=== PATIENT | female | born 1930 | race Caucasian/White ===

== ENCOUNTER 2019-09-17 07:30 | Inpatient (IN) | payer MEDICARE, OTHER ==
[2019-09-24] MEDS ORDERED: Lidocaine 1%/Sod Bicarbonate in NS 8.4% 1 ML Syringe IDERM PRN (00:01)
[2019-09-24] MEDS ORDERED: Sodium Chloride 0.9% 10 ML Syringe FLUSH PRN (00:01)
[2019-09-24] MEDS ORDERED: Lactated Ringers 1,000 ML IV SCH (00:01)
[2019-09-24] MEDS ORDERED: Ropivacaine 0.5% 5 MG/ML 30 ML SDV ONE (03:30)
[2019-09-24] MEDS ORDERED: EPINEPHrine 1 MG/ML SDV ONE (03:30)
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
[2019-09-24] MEDS ORDERED: Lidocaine 1% 4 ML ONE (08:10)
[2019-09-24] MEDS ORDERED: ceFAZolin 1 GM Vial ONE (08:10)
[2019-09-24] MEDS ORDERED: Dexamethasone 4 MG/ML 5 ML MDV ONE (08:10)
[2019-09-24] MEDS ORDERED: Ondansetron 4 MG/2 ML SDV ONE (08:10)
[2019-09-24] MEDS ORDERED: Propofol 200 MG/20 ML SDV ONE (08:10)
[2019-09-24] MEDS ORDERED: ePHEDrine/Normal Saline 25 MG/5 ML Syringe ONE (09:02)
[2019-09-24] MEDS ORDERED: Lactated Ringers 1,000 ML ONE (09:02)
[2019-09-24] MEDS: ceFAZolin 1 GM Vial ONE ×2 (09:15→10:11)
[2019-09-24] MEDS: Bupivacaine 0.25% 10 ML SDV ONE ×2 (09:15→10:15)
[2019-09-24] MEDS: Iodine/Sodium Iodide 2% Tincture 30 ML Bottle ONE ×2 (09:16→10:07)
[2019-09-24] MEDS: Vancomycin 1 GM SDV ONE ×2 (09:17→10:17)
[2019-09-24] MEDS: EPINEPHrine 0.3 MG, Cefuroxime 750 MG, Ketorolac 30 MG, Sodium Chloride 0.9% 28.7 ML ONE ×8 (09:18→10:15)
[2019-09-24] MEDS ORDERED: Morphine 8 MG, EPINEPHrine 0.3 MG, Cefuroxime 750 MG, Ketorolac 30 MG, Sodium Chloride ... ONE ×5 (10:00)
--- NOTE | 2019-09-24 10:55 | PCM.POSTAN ---
POST ANESTHESIA ASSESSMENT - MENTAL STATUS Mental Status: Alert - VITAL SIGNS Vital Signs: 156/61, 58, 98.8, 20) Last Vital Signs Temp 37.1 C 09/24/19 07:20 Pulse 51 L 09/24/19 07:20 Resp 16 09/24/19 07:20 BP 182/54 H 09/24/19 07:20 Pulse Ox 96 09/24/19 07:20 - RESPIRATORY Respiratory Status: Respiratory Rate WNL, Airway Patent, O2 Saturation Stable, Supplemental Oxygen - CARDIOVASCULAR CV Status: Pulse Rate WNL, Blood Pressure Stable - GASTROINTESTINAL GI Status: No Symptoms - PAIN Pain Score: 0
[2019-09-24] MEDS ORDERED: Ondansetron 4 MG/2 ML SDV IVPUSH PRN ×2 (10:56→11:00)
[2019-09-24] MEDS ORDERED: diphenhydrAMINE 50 MG/ML SDV IVPUSH PRN (10:56)
[2019-09-24] MEDS ORDERED: HYDROmorphone 0.5 MG/0.5 ML Syringe IVPUSH PRN (11:00)
[2019-09-24] MEDS ORDERED: Ketorolac 15 MG/ML SDV IVPUSH PRN (11:00)
[2019-09-24] MEDS ORDERED: Magnesium Hydroxide 400 MG/5 ML Susp 30 ML Cup PO PRN (11:00)
[2019-09-24] MEDS ORDERED: Bisacodyl 5 MG Tab PO PRN (11:00)
[2019-09-24] MEDS ORDERED: Sennosides 8.6 MG Tab PO PRN (11:00)
[2019-09-24] MEDS ORDERED: Naloxone 0.4 MG/ML SDV IVPUSH PRN (11:00)
[2019-09-24] MEDS: fentaNYL 100 MCG/2 ML SDV IVPUSH PRN ×2 (11:05→11:16)
--- NOTE | 2019-09-24 11:08 | PCM.SN ---
- Free Text/Narrative Note: Right selective femoral nerve block at the adductor canal for post-procedure pain control under US guidance requested by Dr. Kebede. Date:09/14/19 Time Out:1050 Start:1055 End: 1057 Chart reviewed. Consent signed. Questions answered. Appropriate monitors applied. Time out performed. Right mid-shaft femur identified with ultrasound, scanning medially of femur, the femoral artery in the adductor canal visualized , and the femoral nerve located laterally to the artery. The skin was prepped lateral to the ultrasound probe with chlorahexadine times two. The 21ga 4 insulated block needle was inserted under direct ultrasound guidance into the adductor canal. 20mL of 0.5% ropivacaine with 1:200,000 epinephrine was injected circumferentially around the nerve with intermittent negative aspiration noted. Patient tolerated the procedure well. Sterile technique noted along with sterile gloves, mask, and sterile probe cover. See picture on progress note and vital signs on nurses notes. Block completed in PACU. Marilee Green CRNA
--- NOTE | 2019-09-24 12:04 | CR ---
Right knee: AP and lateral views of the right knee were obtained. Comparison: Prior right knee study of 06/26/18. Knee prosthesis is seen. Components are aligned. Soft tissue air is noted from the surgical procedure. Underlying bony structures are intact. Impression: 1. Satisfactory radiographic appearance of recently placed right knee prosthesis. Diagnostic code #2
[2019-09-24] MEDS: Acetaminophen/HYDROcodone 325-5 MG Tab PO PRN ×2 (14:01→21:21)
[2019-09-24] MEDS ORDERED: AMOXICILLIN 2000 MG PO PRN (14:42)
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
[2019-09-24] MEDS: ceFAZolin 2 GM in Premix Bag 1 BAG IV SCH (17:14)
[2019-09-24] MEDS: Docusate Sodium 100 MG Cap PO SCH (20:50)
[2019-09-24] MEDS: Carboxymethylcellulose Sodium 1% Ophth Gel 15 ML Bottle EYEBOTH SCH (20:54)
[2019-09-24] MEDS ORDERED: Famotidine 20 MG Tab PO SCH (21:00)
[2019-09-24] MEDS: TERBINAFINE TOP SCH (21:20)
[2019-09-25] MEDS: ceFAZolin 2 GM in Premix Bag 1 BAG IV SCH ×2 (00:35→10:16)
[2019-09-25] MEDS: Acetaminophen/HYDROcodone 325-5 MG Tab PO PRN ×2 (00:57→08:26)
[2019-09-25] MEDS ORDERED: Trospium 20 MG Tab PO SCH (06:00)
[2019-09-25] MEDS ORDERED: Levothyroxine 25 MCG Tab PO SCH (06:00)
--- NOTE | 2019-09-25 06:36 | PCM.SURGPN ---
- General Info Date of Service: 09/25/19 POD#: 1 Functional Status: Reports: Pain Controlled, Tolerating Diet, Ambulating, Urinating, Incentive Spirometry, Other (The pt states she "will be able to get around fine" with the help of her .) - Patient Data Vitals - Most Recent: Last Vital Signs Temp 97.5 F 09/25/19 00:40 Pulse 58 L 09/25/19 00:40 Resp 16 09/25/19 00:40 BP 151/49 H 09/25/19 00:40 Pulse Ox 95 09/25/19 00:40 Weight - Most Recent: 114 lb 4.8 oz I&O - Last 24 Hours: Intake & Output 09/24/19 09/24/19 09/25/19 14:59 22:59 06:59 Intake Total 250 1330 Output Total 900 Balance 250 430 Lab Results Last 24 Hrs: Laboratory Results - last 24 hr 09/25/19 Range/Units 05:22 WBC 10.15 H (3.98-10.04) K/mm3 RBC 3.21 L (3.98-5.22) M/mm3 Hgb 9.7 L (11.2-15.7) gm/dl Hct 30.7 L (34.1-44.9) % MCV 95.6 H (79.4-94.8) fl MCH 30.2 (25.6-32.2) pg MCHC 31.6 L (32.2-35.5) g/dl RDW Std Deviation 44.9 (36.4-46.3) fL Plt Count 237 (182-369) K/mm3 MPV 9.4 (9.4-12.3) fl Med Orders - Current: Current Medications Hydrocodone Bitart/Acetaminophen ([place] 325-5 Mg) 1 - 2 tab PO Q4H PRN PRN Reason: Pain Last Admin: 09/25/19 00:57 Dose: 1 tab Amlodipine Besylate (Norvasc) 5 mg PO DAILY [facility] Artificial Tears (Refresh Liquigel 1%) 0 ml EYEBOTH BID [facility] Last Admin: 09/24/19 20:54 Dose: Not Given Bisacodyl (Dulcolax) 5 mg PO DAILY PRN PRN Reason: Constipation Cholecalciferol (Vitamin D3) 5,000 unit PO DAILY [facility] Citalopram Hydrobromide (Celexa) 30 mg PO DAILY [facility] Docusate Sodium (Colace) 100 mg PO BID [facility] Last Admin: 09/24/19 20:50 Dose: 100 mg Famotidine (Pepcid) 20 mg PO Q12H [facility] Last Admin: 09/24/19 20:50 Dose: 20 mg Hydrochlorothiazide (Hydrochlorothiazide) 12.5 mg PO DAILY [facility] Hydromorphone HCl (Dilaudid) 0.2 mg IVPUSH Q2H PRN PRN Reason: Pain (moderate 4-6) Cefazolin Sodium/Dextrose 2 gm (/ Premix) 50 mls @ 100 mls/hr IV Q8H [facility] Stop: 09/25/19 09:29 Last Admin: 09/25/19 00:35 Dose: 100 mls/hr Levothyroxine Sodium (Levothyroxine) 37.5 mcg PO ACBREAKFAST [facility] Last Admin: 09/25/19 05:38 Dose: 37.5 mcg Losartan Potassium (Cozaar) 100 mg PO DAILY [facility] Magnesium Hydroxide (Milk Of Magnesia) 30 ml PO BID PRN PRN Reason: Constipation Multivitamins (Thera) 1 each PO DAILY [facility] Naloxone HCl (Narcan) 0.1 mg IVPUSH Q5M PRN PRN Reason: Oversedation Ondansetron HCl (Zofran) 4 mg IVPUSH Q6H PRN PRN Reason: Nausea/Vomiting Bimatoprost 1 Drop 0 each EYEBOTH BEDTIME [facility] Last Admin: 09/24/19 20:54 Dose: 1 each Terbinafine 1 Dose 0 each TOP BID [facility] Last Admin: 09/24/19 21:20 Dose: Not Given Potassium Chloride (Klor-Con 10) 10 meq PO DAILY [facility] Rivaroxaban (Xarelto) 10 mg PO DAILY [facility] Senna (Senna) 8.6 mg PO BID PRN PRN Reason: Constipation Timolol Maleate (Timoptic 0.5% Oph Soln) 0 ml EYEBOTH DAILY [facility] Trospium (Sanctura) 20 mg PO BIDAC [facility] Last Admin: 09/25/19 05:37 Dose: 20 mg Discontinued Medications Bupivacaine HCl (Sensorcaine-Mpf 0.25%) Confirm Administered Dose 30 ml .ROUTE .K-MED ONE Stop: 09/24/19 07:38 Last Admin: 09/24/19 10:15 Dose: 30 ml Cefazolin Sodium (Ancef) Confirm Administered Dose 2 gm .ROUTE .STK-MED ONE Stop: 09/24/19 07:38 Last Admin: 09/24/19 10:11 Dose: 2 gm Cefazolin Sodium (Ancef) Confirm Administered Dose 2 gm .ROUTE .STK-MED ONE Stop: 09/24/19 08:11 Epinephrine HCl 0.3 mg/Cefuroxime Sodium 750 mg/Ketorolac Tromethamine 30 mg/ Sodium Chloride 28.7 ml 0 mg .XX ONETIME ONE Stop: 09/24/19 09:01 Last Admin: 09/24/19 10:15 Dose: 780.3 mg Dexamethasone (Dexamethasone) Confirm Administered Dose 20 mg .ROUTE .STK-MED ONE Stop: 09/24/19 08:11 Diphenhydramine HCl (Benadryl) 25 mg IVPUSH Q6H PRN PRN Reason: pruritis Stop: 09/24/19 14:00 Ephedrine Sulfate (Ephedrine In Ns) Confirm Administered Dose 25 mg .ROUTE .STK- MED ONE Stop: 09/24/19 09:03 Epinephrine HCl (Adrenalin) Confirm Administered Dose 1 mg .ROUTE .STK-MED ONE Stop: 09/24/19 03:31 Fentanyl (Sublimaze) 50 mcg IVPUSH Q5M PRN PRN Reason: Pain Stop: 09/24/19 14:00 Last Admin: 09/24/19 11:16 Dose: 50 mcg Lactated Ringer's (Ringers, Lactated) 1,000 mls @ 125 mls/hr IV ASDIRECTED [facility] Stop: 09/24/19 23:00 Last Admin: 09/24/19 07:35 Dose: 125 mls/hr Lidocaine HCl (Xylocaine-Mpf 1%) Confirm Administered Dose 4 mls @ as directed .ROUTE .STK-MED ONE Stop: 09/24/19 08:11 Lactated Ringer's (Ringers, Lactated) Confirm Administered Dose 1,000 mls @ as directed .ROUTE .STK-MED ONE Stop: 09/24/19 09:03 Iodine (Iodine 2% Mild Tincture) Confirm Administered Dose 30 ml .ROUTE .STK- MED ONE Stop: 09/24/19 07:38 Last Admin: 09/24/19 10:07 Dose: 18 ml Ketorolac Tromethamine (Toradol) 15 mg IVPUSH Q6H PRN PRN Reason: Pain Last Admin: 09/25/19 00:57 Dose: 15 mg Lidocaine/Sodium Bicarbonate (Buffered Lidocaine 1% In Ns 8.4%) 0.25 ml IDERM ONETIME PRN PRN Reason: Prior to IV Start Stop: 09/24/19 18:00 Last Admin: 09/24/19 07:35 Dose: 0.25 ml Non-Formulary Medication (Amoxicillin) 2,000 mg PO ONETIME PRN PRN Reason: prior to dental procedures Ondansetron HCl (Zofran) Confirm Administered Dose 4 mg .ROUTE .STK-MED ONE Stop: 09/24/19 08:11 Ondansetron HCl (Zofran) 4 mg IVPUSH ONETIME PRN PRN Reason: Nausea/Vomiting Stop: 09/24/19 14:00 Propofol (Diprivan 20 Ml) Confirm Administered Dose 400 mg .ROUTE .STK-MED ONE Stop: 09/24/19 08:11 Ropivacaine (Naropin 0.5%) Confirm Administered Dose 30 ml .ROUTE .STK-MED ONE Stop: 09/24/19 03:31 Sodium Chloride (Saline Flush) 10 ml FLUSH ASDIRECTED PRN PRN Reason: Keep Vein Open Stop: 09/24/19 18:00 Tranexamic Acid (Cyklokapron) Confirm Administered Dose 1,000 mg .ROUTE .STK- MED ONE Stop: 09/24/19 07:37 Last Admin: 09/24/19 10:21 Dose: 1,000 mg Vancomycin HCl (Vancomycin) Confirm Administered Dose 1 gm .ROUTE .STK-MED ONE Stop: 09/24/19 07:37 Last Admin: 09/24/19 10:17 Dose: 1 gm - Exam Wound/Incisions: Dressing Dry and Intact General: Alert, Cooperative, No Acute Distress Lungs: Normal Respiratory Effort Extremities: Other (Gina's negative for BLE. NVS intact for RLE.) - Problem List Review Problem List Initiated/Reviewed/Updated: Yes - My Orders Last 24 Hours: Active Orders 24 hr Category Date Time Status Patient Status [ADT] Routine ADT 09/24/19 06:45 Active Ambulate [RC] BID Care 09/24/19 06:45 Active Antiembolic Devices [RC] BID Care 09/24/19 06:49 Active May Shower [RC] DAILY Care 09/24/19 06:45 Active Notify Provider Consults [RC] DAILY Care 09/24/19 06:49 Active Oxygen Therapy [RC] PRN Care 09/24/19 06:45 Active RT Incentive Spirometry [RC] Q1HWA Care 09/24/19 06:44 Active Up to Chair [RC] DAILY Care 09/24/19 06:45 Active Vital Signs [RC] Q4HR Care 09/24/19 06:45 Active Consult to Physician [CONS] Routine Cons 09/24/19 06:45 Active OT Evaluation and Treatment [CONS] Routine Cons 09/24/19 06:44 Active PT Evaluation and Treatment [CONS] Routine Cons 09/24/19 06:44 Active Regular Diet [DIET] Diet 09/24/19 Lunch Active COMPREHENSIVE METABOLIC PN,CMP [CHEM] AM Lab 09/25/19 05:22 Received Acetaminophen/HYDROcodone [[place] 325-5 MG] Med 09/24/19 11:00 Active 1 - 2 tab PO Q4H PRN Bisacodyl [Dulcolax] Med 09/24/19 11:00 Active 5 mg PO DAILY PRN Carboxymethylcellulose Sodium [Refresh Liquigel 1%] Med 09/24/19 21:00 Active 0 ml EYEBOTH BID Cholecalciferol (Vitamin D3) [Vitamin D3] Med 09/25/19 09:00 Active 5,000 unit PO DAILY Citalopram [Celexa] Med 09/25/19 09:00 Active 30 mg PO DAILY Docusate Sodium [Colace] Med 09/24/19 21:00 Active 100 mg PO BID Famotidine [Pepcid] Med 09/24/19 21:00 Active 20 mg PO Q12H HYDROmorphone [Dilaudid] Med 09/24/19 11:00 Active 0.2 mg IVPUSH Q2H PRN Levothyroxine Med 09/25/19 06:00 Active 37.5 mcg PO ACBREAKFAST Losartan [Cozaar] Med 09/25/19 09:00 Active 100 mg PO DAILY Magnesium Hydroxide [Milk of Magnesia] Med 09/24/19 11:00 Active 30 ml PO BID PRN Multivitamins,Therapeutic [Thera] Med 09/25/19 09:00 Active 1 each PO DAILY Naloxone [Narcan] Med 09/24/19 11:00 Active 0.1 mg IVPUSH Q5M PRN Ondansetron [Zofran] Med 09/24/19 11:00 Active 4 mg IVPUSH Q6H PRN Patient's Own Medication [Ptom] Med 09/24/19 21:00 Active 0 each EYEBOTH BEDTIME Patient's Own Medication [Ptom] Med 09/24/19 21:00 Active 0 each TOP BID Potassium Chloride [Klor-Con 10] Med 09/25/19 09:00 Active 10 meq PO DAILY Rivaroxaban [Xarelto] Med 09/25/19 09:00 Pending 10 mg PO DAILY Sennosides [Senna] Med 09/24/19 11:00 Active 8.6 mg PO BID PRN Timolol Maleate [Timoptic 0.5% Ophth Soln] Med 09/25/19 09:00 Active 0 ml EYEBOTH DAILY Trospium [Sanctura] Med 09/25/19 06:00 Active 20 mg PO BIDAC amLODIPine [Norvasc] Med 09/25/19 09:00 Active 5 mg PO DAILY ceFAZolin [Ancef] 2 gm Med 09/24/19 17:00 Active Premix Bag 1 bag IV Q8H hydroCHLOROthiazide Med 09/25/19 09:00 Active 12.5 mg PO DAILY Antiembolic Hose [OM.PC] Per Unit Routine Oth 09/24/19 06:47 Ordered Ice Therapy [OM.PC] Per Unit Routine Oth 09/24/19 06:46 Ordered Resuscitation Status Routine Resus Stat 09/24/19 06:45 Ordered Medication Orders Hydrocodone Bitart/Acetaminophen ([place] 325-5 Mg) 1 - 2 tab PO Q4H PRN PRN Reason: Pain Last Admin: 09/25/19 00:57 Dose: 1 tab Admin: 09/24/19 21:21 Dose: 1 tab Admin: 09/24/19 14:01 Dose: 2 tab Amlodipine Besylate (Norvasc) 5 mg PO DAILY [facility] Artificial Tears (Refresh Liquigel 1%) 0 ml EYEBOTH BID [facility] Last Admin: 09/24/19 20:54 Dose: Not Given Bisacodyl (Dulcolax) 5 mg PO DAILY PRN PRN Reason: Constipation Cholecalciferol (Vitamin D3) 5,000 unit PO DAILY [facility] Citalopram Hydrobromide (Celexa) 30 mg PO DAILY [facility] Docusate Sodium (Colace) 100 mg PO BID [facility] Last Admin: 09/24/19 20:50 Dose: 100 mg Famotidine (Pepcid) 20 mg PO Q12H [facility] Last Admin: 09/24/19 20:50 Dose: 20 mg Hydrochlorothiazide (Hydrochlorothiazide) 12.5 mg PO DAILY [facility] Hydromorphone HCl (Dilaudid) 0.2 mg IVPUSH Q2H PRN PRN Reason: Pain (moderate 4-6) Cefazolin Sodium/Dextrose 2 gm (/ Premix) 50 mls @ 100 mls/hr IV Q8H [facility] Stop: 09/25/19 09:29 Last Admin: 09/25/19 00:35 Dose: 100 mls/hr Infusion: 09/24/19 17:44 Dose: 100 mls/hr Admin: 09/24/19 17:14 Dose: 100 mls/hr Levothyroxine Sodium (Levothyroxine) 37.5 mcg PO ACBREAKFAST [facility] Last Admin: 09/25/19 05:38 Dose: 37.5 mcg Losartan Potassium (Cozaar) 100 mg PO DAILY [facility] Magnesium Hydroxide (Milk Of Magnesia) 30 ml PO BID PRN PRN Reason: Constipation Multivitamins (Thera) 1 each PO DAILY [facility] Naloxone HCl (Narcan) 0.1 mg IVPUSH Q5M PRN PRN Reason: Oversedation Ondansetron HCl (Zofran) 4 mg IVPUSH Q6H PRN PRN Reason: Nausea/Vomiting Bimatoprost 1 Drop 0 each EYEBOTH BEDTIME [facility] Last Admin: 09/24/19 20:54 Dose: 1 each Terbinafine 1 Dose 0 each TOP BID [facility] Last Admin: 09/24/19 21:20 Dose: Not Given Potassium Chloride (Klor-Con 10) 10 meq PO DAILY [facility] Rivaroxaban (Xarelto) 10 mg PO DAILY [facility] Senna (Senna) 8.6 mg PO BID PRN PRN Reason: Constipation Timolol Maleate (Timoptic 0.5% Ophth Soln) 0 ml EYEBOTH DAILY [facility] Trospium (Sanctura) 20 mg PO BIDAC [facility] Last Admin: 09/25/19 05:37 Dose: 20 mg - Assessment Assessment (Free Text/Narrative):: POD#1 - 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 Medical management per Hospitalist service. The pt may d/c today if cleared by Hospitalist service and therapies. 2. Hgb 9.7. 3. Xarelto (family hx VTE), frequent mobility, TEDs. 4. Outpatient therapy. The pt's case was discussed with Dr. Kebede.
[2019-09-25] MEDS ORDERED: Aluminum Hydroxide/Magnesium Hydroxide/Simethicone Susp 30 ML Cup PO PRN (06:52)
--- NOTE | 2019-09-25 08:49 | PCM48HPAN ---
Post Anesthesia Note - EVALUATION WITHIN 48HRS OF ANESTHETIC Vital Signs in Normal Range: Yes Patient Participated in Evaluation: Yes Respiratory Function Stable: Yes Airway Patent: Yes Cardiovascular Function Stable: Yes Hydration Status Stable: Yes Pain Control Satisfactory: Yes Nausea and Vomiting Control Satisfactory: Yes Mental Status Recovered: Yes Vital Signs: Last Vital Signs Temp 36.4 C 09/25/19 08:16 Pulse 51 L 09/25/19 08:16 Resp 18 09/25/19 08:16 BP 180/48 H 09/25/19 08:16 Pulse Ox 98 09/25/19 08:16
[2019-09-25] MEDS ORDERED: Potassium Chloride 10 MEQ Tab.ER PO SCH (09:00)
[2019-09-25] MEDS ORDERED: Citalopram 20 MG Tab PO SCH (09:00)
[2019-09-25] MEDS ORDERED: Cholecalciferol (Vitamin D3) 5,000 UNIT Tab PO SCH (09:00)
[2019-09-25] MEDS ORDERED: Hydrochlorothiazide 12.5 MG Cap PO SCH (09:00)
[2019-09-25] MEDS ORDERED: Multivitamins,Therapeutic Tab PO SCH (09:00)
[2019-09-25] MEDS ORDERED: Rivaroxaban 10 MG Tab PO SCH (09:00)
[2019-09-25] MEDS ORDERED: Losartan 100 MG Tab PO SCH (09:00)
[2019-09-25] MEDS ORDERED: Timolol Maleate 0.5% Ophth Soln 5 ML Bottle EYEBOTH SCH (09:00)
[2019-09-25] MEDS ORDERED: amLODIPine 5 MG Tab PO SCH (09:00)
[2019-09-25] MEDS ORDERED: ceFAZolin/Dextrose,Iso-Osmotic 2 GM/50 ML Duplex Bag IV ONE (09:53)
[2019-09-25] MEDS: Docusate Sodium 100 MG Cap PO SCH (10:19)
[2019-09-25] MEDS: Carboxymethylcellulose Sodium 1% Ophth Gel 15 ML Bottle EYEBOTH SCH (10:22)
[2019-09-25] MEDS: TERBINAFINE TOP SCH (10:24)
[2019-09-25] MEDS ORDERED: TIMOLOL 0.5% EYEBOTH SCH (10:37)
[2019-09-25] MEDS ORDERED: Scopolamine 1.5 MG Transdermal Patch TRDERM STA (11:40)
--- NOTE | 2019-09-25 13:28 | PCM.CONSN ---
- General Info Date of Service: 09/25/19 Admission Dx/Problem (Free Text): Admission Diagnosis/Problem Admission Diagnosis/Problem Pain in limb Functional Status: Reports: Pain Controlled - Review of Systems General: Reports: No Symptoms HEENT: Reports: No Symptoms Pulmonary: Reports: No Symptoms Cardiovascular: Reports: No Symptoms Gastrointestinal: Reports: No Symptoms - Patient Data Vitals - Most Recent: Last Vital Signs Temp 97.5 F 09/25/19 08:16 Pulse 51 L 09/25/19 08:16 Resp 18 09/25/19 08:16 BP 180/48 H 09/25/19 10:18 Pulse Ox 98 09/25/19 08:16 Weight - Most Recent: 114 lb 4.8 oz I&O - Last 24 Hours: Intake & Output 09/24/19 09/25/19 09/25/19 22:59 06:59 14:59 Intake Total 1330 750 90 Output Total 900 250 Balance 430 500 90 Lab Results Last 24 Hours: Laboratory Results - last 24 hr 09/25/19 09/25/19 Range/Units 05:22 05:22 WBC 10.15 H (3.98-10.04) K/mm3 RBC 3.21 L (3.98-5.22) M/mm3 Hgb 9.7 L (11.2-15.7) gm/dl Hct 30.7 L (34.1-44.9) % MCV 95.6 H (79.4-94.8) fl MCH 30.2 (25.6-32.2) pg MCHC 31.6 L (32.2-35.5) g/dl RDW Std Deviation 44.9 (36.4-46.3) fL Plt Count 237 (182-369) K/mm3 MPV 9.4 (9.4-12.3) fl Sodium 140 (136-145) mEq/L Potassium 3.8 (3.5-5.1) mEq/L Chloride 103 (98-107) mEq/L Carbon Dioxide 29 (21-32) mEq/L Anion Gap 11.8 (5-15) BUN 27 H (7-18) mg/dL Creatinine 0.9 (0.55-1.02) mg/dL Est Cr Clr Drug Dosing 31.63 mL/min Estimated GFR (MDRD) 59 (>60) mL/min BUN/Creatinine Ratio 30.0 H (14-18) Glucose 116 H (83-115) mg/dL Calcium 8.5 (8.5-10.1) mg/dL Total Bilirubin 0.3 (0.2-1.0) mg/dL AST 19 (15-37) U/L ALT 13 L (14-59) U/L Alkaline Phosphatase 57 (46-116) U/L Total Protein 5.6 L (6.4-8.2) g/dl Albumin 2.8 L (3.4-5.0) g/dl Globulin 2.8 gm/dL Albumin/Globulin Ratio 1.0 (1-2) Med Orders - Current: Current Medications Hydrocodone Bitart/Acetaminophen ([place] 325-5 Mg) 1 - 2 tab PO Q4H PRN PRN Reason: Pain Last Admin: 09/25/19 08:26 Dose: 2 tab Al Hydroxide/Mg Hydroxide (Mag-Al Plus) 30 ml PO Q4H PRN PRN Reason: Heartburn Last Admin: 09/25/19 08:26 Dose: 30 ml Amlodipine Besylate (Norvasc) 5 mg PO DAILY [facility] Last Admin: 09/25/19 10:18 Dose: 5 mg Artificial Tears (Refresh Liquigel 1%) 0 ml EYEBOTH BID [facility] Last Admin: 09/25/19 10:22 Dose: Not Given Bisacodyl (Dulcolax) 5 mg PO DAILY PRN PRN Reason: Constipation Cholecalciferol (Vitamin D3) 5,000 unit PO DAILY [facility] Last Admin: 09/25/19 10:18 Dose: 5,000 unit Citalopram Hydrobromide (Celexa) 30 mg PO DAILY [facility] Last Admin: 09/25/19 10:17 Dose: 30 mg Docusate Sodium (Colace) 100 mg PO BID [facility] Last Admin: 09/25/19 10:19 Dose: 100 mg Famotidine (Pepcid) 20 mg PO BEDTIME [facility] Hydrochlorothiazide (Hydrochlorothiazide) 12.5 mg PO DAILY [facility] Last Admin: 09/25/19 10:18 Dose: 12.5 mg Hydromorphone HCl (Dilaudid) 0.2 mg IVPUSH Q2H PRN PRN Reason: Pain (moderate 4-6) Levothyroxine Sodium (Levothyroxine) 37.5 mcg PO ACBREAKFAST [facility] Last Admin: 09/25/19 05:38 Dose: 37.5 mcg Losartan Potassium (Cozaar) 100 mg PO DAILY [facility] Last Admin: 09/25/19 10:16 Dose: 100 mg Magnesium Hydroxide (Milk Of Magnesia) 30 ml PO BID PRN PRN Reason: Constipation Miscellaneous Information (Remove Patch) 0 ea TRDERM ONETIME ONE Stop: 09/28/19 11:46 Multivitamins (Thera) 1 each PO DAILY [facility] Last Admin: 09/25/19 10:18 Dose: 1 each Naloxone HCl (Narcan) 0.1 mg IVPUSH Q5M PRN PRN Reason: Oversedation Ondansetron HCl (Zofran) 4 mg IVPUSH Q6H PRN PRN Reason: Nausea/Vomiting Last Admin: 09/25/19 10:19 Dose: 4 mg Bimatoprost 1 Drop 0 each EYEBOTH BEDTIME [facility] Last Admin: 09/24/19 20:54 Dose: 1 each Terbinafine 1 Dose 0 each TOP BID [facility] Last Admin: 09/25/19 10:24 Dose: Not Given Timolol 0.5% 10 Ml Bottle Pateint's Own 0 each EYEBOTH DAILY [facility] Potassium Chloride (Klor-Con 10) 10 meq PO DAILY [facility] Last Admin: 09/25/19 10:18 Dose: 10 meq Rivaroxaban (Xarelto) 10 mg PO DAILY [facility] Last Admin: 09/25/19 10:16 Dose: 10 mg Senna (Senna) 8.6 mg PO BID PRN PRN Reason: Constipation Trospium (Sanctura) 20 mg PO BIDAC [facility] Last Admin: 09/25/19 05:37 Dose: 20 mg Discontinued Medications Bupivacaine HCl (Sensorcaine-Mpf 0.25%) Confirm Administered Dose 30 ml .ROUTE .STK-MED ONE Stop: 09/24/19 07:38 Last Admin: 09/24/19 10:15 Dose: 30 ml Cefazolin Sodium (Ancef) Confirm Administered Dose 2 gm .ROUTE .STK-MED ONE Stop: 09/24/19 07:38 Last Admin: 09/24/19 10:11 Dose: 2 gm Cefazolin Sodium (Ancef) Confirm Administered Dose 2 gm .ROUTE .STK-MED ONE Stop: 09/24/19 08:11 Cefazolin Sodium/Dextrose (Ancef) Confirm Administered Dose 2 gm IV .STK-MED ONE Stop: 09/25/19 09:54 Last Admin: 09/25/19 10:16 Dose: 2 gm Epinephrine HCl 0.3 mg/Cefuroxime Sodium 750 mg/Ketorolac Tromethamine 30 mg/ Sodium Chloride 28.7 ml 0 mg .XX ONETIME ONE Stop: 09/24/19 09:01 Last Admin: 09/24/19 10:15 Dose: 780.3 mg Dexamethasone (Dexamethasone) Confirm Administered Dose 20 mg .ROUTE .STK-MED ONE Stop: 09/24/19 08:11 Diphenhydramine HCl (Benadryl) 25 mg IVPUSH Q6H PRN PRN Reason: pruritis Stop: 09/24/19 14:00 Ephedrine Sulfate (Ephedrine In Ns) Confirm Administered Dose 25 mg .ROUTE .STK- MED ONE Stop: 09/24/19 09:03 Epinephrine HCl (Adrenalin) Confirm Administered Dose 1 mg .ROUTE .STK-MED ONE Stop: 09/24/19 03:31 Famotidine (Pepcid) 20 mg PO Q12H [facility] Last Admin: 09/24/19 20:50 Dose: 20 mg Fentanyl (Sublimaze) 50 mcg IVPUSH Q5M PRN PRN Reason: Pain Stop: 09/24/19 14:00 Last Admin: 09/24/19 11:16 Dose: 50 mcg Lactated Ringer's (Ringers, Lactated) 1,000 mls @ 125 mls/hr IV ASDIRECTED [facility] Stop: 09/24/19 23:00 Last Admin: 09/24/19 07:35 Dose: 125 mls/hr Cefazolin Sodium/Dextrose 2 gm (/ Premix) 50 mls @ 100 mls/hr IV Q8H [facility] Stop: 09/25/19 09:29 Last Admin: 09/25/19 10:16 Dose: 100 mls/hr Lidocaine HCl (Xylocaine-Mpf 1%) Confirm Administered Dose 4 mls @ as directed .ROUTE .STK-MED ONE Stop: 09/24/19 08:11 Lactated Ringer's (Ringers, Lactated) Confirm Administered Dose 1,000 mls @ as directed .ROUTE .STK-MED ONE Stop: 09/24/19 09:03 Iodine (Iodine 2% Mild Tincture) Confirm Administered Dose 30 ml .ROUTE .STK- MED ONE Stop: 09/24/19 07:38 Last Admin: 09/24/19 10:07 Dose: 18 ml Ketorolac Tromethamine (Toradol) 15 mg IVPUSH Q6H PRN PRN Reason: Pain Last Admin: 09/25/19 00:57 Dose: 15 mg Lidocaine/Sodium Bicarbonate (Buffered Lidocaine 1% In Ns 8.4%) 0.25 ml IDERM ONETIME PRN PRN Reason: Prior to IV Start Stop: 09/24/19 18:00 Last Admin: 09/24/19 07:35 Dose: 0.25 ml Non-Formulary Medication (Amoxicillin) 2,000 mg PO ONETIME PRN PRN Reason: prior to dental procedures Ondansetron HCl (Zofran) Confirm Administered Dose 4 mg .ROUTE .STK-MED ONE Stop: 09/24/19 08:11 Ondansetron HCl (Zofran) 4 mg IVPUSH ONETIME PRN PRN Reason: Nausea/Vomiting Stop: 09/24/19 14:00 Propofol (Diprivan 20 Ml) Confirm Administered Dose 400 mg .ROUTE .STK-MED ONE Stop: 09/24/19 08:11 Ropivacaine (Naropin 0.5%) Confirm Administered Dose 30 ml .ROUTE .STK-MED ONE Stop: 09/24/19 03:31 Scopolamine (Transderm-Scop) 1.5 mg TRDERM ONETIME STA Stop: 09/25/19 11:41 Last Admin: 09/25/19 11:53 Dose: 1.5 mg Sodium Chloride (Saline Flush) 10 ml FLUSH ASDIRECTED PRN PRN Reason: Keep Vein Open Stop: 09/24/19 18:00 Timolol Maleate (Timoptic 0.5% Ophth Soln) 0 ml EYEBOTH DAILY [facility] Tranexamic Acid (Cyklokapron) Confirm Administered Dose 1,000 mg .ROUTE .STK- MED ONE Stop: 09/24/19 07:37 Last Admin: 09/24/19 10:21 Dose: 1,000 mg Vancomycin HCl (Vancomycin) Confirm Administered Dose 1 gm .ROUTE .STK-MED ONE Stop: 09/24/19 07:37 Last Admin: 09/24/19 10:17 Dose: 1 gm - Exam General: Alert, Oriented HEENT: Pupils Equal Neck: Supple Lungs: Clear to Auscultation, Normal Respiratory Effort Cardiovascular: Regular Rate, Regular Rhythm GI/Abdominal Exam: Normal Bowel Sounds, No Distention Consult PN Assessment/Plan Procedures: Procedures BONE IMAGING (3D) (03/21/14) BONE IMAGING WHOLE BODY (03/21/14) COMPLETE CBC AUTOMATED (06/26/18) COMPREHEN METABOLIC PANEL (06/26/18) GAIT TRAINING THERAPY (06/26/18) MEASURE BLOOD OXYGEN LEVEL (06/26/18) MR-STAPH DNA AMP PROBE (09/04/19) OT EVAL LOW COMPLEX 30 MIN (06/26/18) PPSV23 VACC 2 YRS+ SUBQ/IM (06/26/18) PT EVAL LOW COMPLEX 20 MIN (06/26/18) ROUTINE VENIPUNCTURE (06/26/18) SELF CARE MNGMENT TRAINING (06/26/18) THERAPEUTIC EXERCISES (06/26/18) TOTAL KNEE ARTHROPLASTY (06/26/18) X-RAY EXAM OF KNEE 1 OR 2 (06/26/18) Problem List Initiated/Reviewed/Updated: Yes Plan: Assessment * 89-year-old female who underwent right tibial component revision on 2018. * Labile hypertension * Hypothyroidism * Generalized anxiety disorder and depression * Iron deficiency and B12 deficiency anemia Plan * Continue Norvasc 5 mg. She did take it this morning so we'll restart tomorrow. * restart losartan/hydrochlorothiazide until morning labs. * I would not recommend treating her hypertension and less it becomes significantly elevated ( 200/110) and she is symptomatic. * restart other home meds * Incentive spirometer * Pain management per primary team * VTE prophylaxis per primary team * Thank you for allowing us to comanage this patient.
[2019-09-25] MEDS ORDERED: Famotidine 20 MG Tab PO SCH (21:00)
--- NOTE | 2019-09-27 10:43 | PCM.OPNOTE ---
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
--- NOTE | 2019-09-27 13:51 | PCM.DCSUM1 ---
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 Kebede on 09-24-2019. The procedure was completed under spinal anesthesia with sedation. The pt tolerated the procedure well and was admitted to the Medical-Surgical Unit. Medical management was provided by the Hospitalist service. The pt's Hospital course was uneventful. The pt's Hgb on POD#1 was 9.7. On POD#1, Xarelto 10mg PO daily was initiated for VTE prophylaxis. SCDs and TEDs were also ordered. A Mepilex dressing was placed at the incision site at the time of surgery and remained clean and dry. The pt participated in P.T. and O.T. and progressed well. The pt was allowed to WBAT. On POD#1, the pt was deemed appropriate to discharge to home with her . - Discharge Data Discharge Date: 09/25/19 Discharge Disposition: Home, Self-Care 01 Condition: Good - Referral to Home Health Primary Care Physician: Otf Wang MD - Patient Summary/Data Operative Procedure(s) Performed: revision or right total knee tibial component Consults: Consultations 09/24/19 06:44 OT Evaluation and Treatment [CONS] Routine PT Evaluation and Treatment [CONS] Routine 09/24/19 06:45 Consult to Physician [CONS] Routine - Patient Instructions Diet: Usual Diet as Tolerated Activity: Apply Ice, As Tolerated, Elevate Extremity, Full Weight Bearing Driving: Do Not Drive Showering/Bathing: May Shower Wound/Incision Care: Keep Operative Site/Wound Site Clean and Dry, Do NOT Change Dressing Notify Provider of: Fever, Increased Pain, Swelling and Redness, Drainage, Nausea and/or Vomiting Other/Special Instructions: Please get up and moving around EVERY HOUR while awake. This helps to prevent blood clots. Please use your walker and have help with mobility as needed. Take a short walk in your home every hour while awake. Please take the Xarelto blood thinner medication daily as directed. Please complete the exercises that you learned during the Hospital stay. Schedule for physical therapy. Use the pain medication as needed. The medication may cause drowsiness and constipation. Contact your primary care provider for instructions if you are constipated. You may use a stool softener like docusate sodium or Colace 100mg twice daily and/or a laxative like Miralax daily for constipation. Increase your water and fiber intake while you are using the pain medication. Discontinue use of the pain medication as soon as able. Please do not use other medications that may cause drowsiness (other pain medications, anxiety pills, cold medications, sleeping pills, etc) while using the prescription pain medication. Do not use alcohol while using the pain medication. You may use acetaminophen or Tylenol for pain management, however, please ensure you are not using over 4000 mg or 4 grams of acetaminophen per day from all sources. Your pain medication has 325mg of acetaminophen per tablet. At this time, please do not use ibuprofen (Motrin, Advil) or naproxen (Aleve) for pain management as you are using the Xarelto. When the Xarelto course is completed in 4 weeks, you could use ibuprofen or naproxen for pain management (if this is allowed by your primary care provider) . Wear the DARYN hose during the day and you may remove these at night. Elevate the limb to decrease swelling. Place ice to the area often. Place a towel between your skin and the blue pad. Use the incentive spirometer often. Take deep breaths throughout the day. Please keep the dressing in place until follow -up. Notify the Clinic if the dressing becomes saturated. Increase your protein intake while you are healing. If you have diabetes, please closely monitor your blood sugars and notify your primary care provider with abnormal values. Elevated blood sugars increases the risk of infection. Call the Clinic with questions or concerns - [phone]. - Discharge Plan *PRESCRIPTION DRUG MONITORING PROGRAM REVIEWED*: No *COPY OF PRESCRIPTION DRUG MONITORING REPORT IN PATIENT JOCELYN: No Prescriptions/Med Rec: Acetaminophen/HYDROcodone [[place] 325-5 MG] 1 - 2 tab PO Q4H PRN #60 tablet PRN Reason: Pain Rivaroxaban [Xarelto] 10 mg PO DAILY #30 tablet Home Medications: Home Meds Bimatoprost [LUMIGAN 0.01% Ophth Soln] 1 drop EYEBOTH BEDTIME 06/24/18 [History] Citalopram Hydrobromide [Celexa] 30 mg PO DAILY 06/24/18 [History] FA/Lycopene/Lut/MV,Ca,Iron,Min [Centrum] 1 tab PO DAILY 06/24/18 [History] Levothyroxine 37.5 mcg PO DAILY 06/24/18 [History] Losartan/Hydrochlorothiazide [Losartan-HCTZ 100-12.5 MG] 1 tab PO DAILY [History] Potassium Chloride 10 meq PO DAILY 06/24/18 [History] Solifenacin [Vesicare] 5 mg PO DAILY 06/24/18 [History] Terbinafine [LamISIL AT 1% Crm] 1 dose TOP BID 06/24/18 [History] Timolol [Betimol] 1 drop EYEBOTH DAILY 06/24/18 [History] amLODIPine Besylate [Amlodipine Besylate] 5 mg PO DAILY 06/24/18 [History] Acetaminophen [Tylenol Extra Strength] 1,500 mg PO TID PRN #0 06/26/18 [Rx] Amoxicillin 2,000 mg PO ONETIME PRN 09/14/19 [History] Cholecalciferol (Vitamin D3) [Vitamin D3] 5,000 unit PO DAILY 09/14/19 [History] Propylene Glycol/PEG 400/Pf [Systane 0.3-0.4% Eye Drop] 1 drop EYEBOTH BID 09/14 [History] Acetaminophen/HYDROcodone [[place] 325-5 MG] 1 - 2 tab PO Q4H PRN #60 tablet 09/25 [Rx] Bisacodyl [Dulcolax] 5 mg PO DAILY PRN tablet 09/25/19 [Rx] Docusate Sodium [Colace] 100 mg PO BID cap 09/25/19 [Rx] Famotidine [Pepcid] 20 mg PO Q12H tablet 09/25/19 [Rx] Rivaroxaban [Xarelto] 10 mg PO DAILY #30 tablet 09/25/19 [Rx] Sennosides [Senna] 8.6 mg PO BID PRN tablet 09/25/19 [Rx] Patient Handouts: Rivaroxaban oral tablets Referrals: Nancy Brown PA-C [[facility]] - (10/[address] Kebede in [place] 10/[address] Kebede in [place] 11/07 1215 Nancy Brown PA-C in [place]) - Discharge Summary/Plan Comment DC Time >30 min.: No - Patient Data Vitals - Most Recent: Last Vital Signs Temp 97.5 F 09/25/19 08:16 Pulse 51 L 09/25/19 08:16 Resp 18 09/25/19 08:16 BP 180/48 H 09/25/19 10:18 Pulse Ox 98 09/25/19 08:16 Weight - Most Recent: 114 lb 4.8 oz Med Orders - Current: Current Medications Discontinued Medications Hydrocodone Bitart/Acetaminophen ([place] 325-5 Mg) 1 - 2 tab PO Q4H PRN PRN Reason: Pain Last Admin: 09/25/19 08:26 Dose: 2 tab Al Hydroxide/Mg Hydroxide (Mag-Al Plus) 30 ml PO Q4H PRN PRN Reason: Heartburn Last Admin: 09/25/19 08:26 Dose: 30 ml Amlodipine Besylate (Norvasc) 5 mg PO DAILY [facility] Last Admin: 09/25/19 10:18 Dose: 5 mg Artificial Tears (Refresh Liquigel 1%) 0 ml EYEBOTH BID [facility] Last Admin: 09/25/19 10:22 Dose: Not Given Bisacodyl (Dulcolax) 5 mg PO DAILY PRN PRN Reason: Constipation Bupivacaine HCl (Sensorcaine-Mpf 0.25%) Confirm Administered Dose 30 ml .ROUTE .STK-MED ONE Stop: 09/24/19 07:38 Last Admin: 09/24/19 10:15 Dose: 30 ml Cefazolin Sodium (Ancef) Confirm Administered Dose 2 gm .ROUTE .STK-MED ONE Stop: 09/24/19 07:38 Last Admin: 09/24/19 10:11 Dose: 2 gm Cefazolin Sodium (Ancef) Confirm Administered Dose 2 gm .ROUTE .STK-MED ONE Stop: 09/24/19 08:11 Cefazolin Sodium/Dextrose (Ancef) Confirm Administered Dose 2 gm IV .STK-MED ONE Stop: 09/25/19 09:54 Last Admin: 09/25/19 10:16 Dose: 2 gm Cholecalciferol (Vitamin D3) 5,000 unit PO DAILY [facility] Last Admin: 09/25/19 10:18 Dose: 5,000 unit Citalopram Hydrobromide (Celexa) 30 mg PO DAILY [facility] Last Admin: 09/25/19 10:17 Dose: 30 mg Epinephrine HCl 0.3 mg/Cefuroxime Sodium 750 mg/Ketorolac Tromethamine 30 mg/ Sodium Chloride 28.7 ml 0 mg .XX ONETIME ONE Stop: 09/24/19 09:01 Last Admin: 09/24/19 10:15 Dose: 780.3 mg Dexamethasone (Dexamethasone) Confirm Administered Dose 20 mg .ROUTE .STK-MED ONE Stop: 09/24/19 08:11 Diphenhydramine HCl (Benadryl) 25 mg IVPUSH Q6H PRN PRN Reason: pruritis Stop: 09/24/19 14:00 Docusate Sodium (Colace) 100 mg PO BID [facility] Last Admin: 09/25/19 10:19 Dose: 100 mg Ephedrine Sulfate (Ephedrine In Ns) Confirm Administered Dose 25 mg .ROUTE .STK- MED ONE Stop: 09/24/19 09:03 Epinephrine HCl (Adrenalin) Confirm Administered Dose 1 mg .ROUTE .STK-MED ONE Stop: 09/24/19 03:31 Famotidine (Pepcid) 20 mg PO Q12H [facility] Last Admin: 09/24/19 20:50 Dose: 20 mg Famotidine (Pepcid) 20 mg PO BEDTIME [facility] Fentanyl (Sublimaze) 50 mcg IVPUSH Q5M PRN PRN Reason: Pain Stop: 09/24/19 14:00 Last Admin: 09/24/19 11:16 Dose: 50 mcg Hydrochlorothiazide (Hydrochlorothiazide) 12.5 mg PO DAILY [facility] Last Admin: 09/25/19 10:18 Dose: 12.5 mg Hydromorphone HCl (Dilaudid) 0.2 mg IVPUSH Q2H PRN PRN Reason: Pain (moderate 4-6) Lactated Ringer's (Ringers, Lactated) 1,000 mls @ 125 mls/hr IV ASDIRECTED [facility] Stop: 09/24/19 23:00 Last Admin: 09/24/19 07:35 Dose: 125 mls/hr Cefazolin Sodium/Dextrose 2 gm (/ Premix) 50 mls @ 100 mls/hr IV Q8H [facility] Stop: 09/25/19 09:29 Last Admin: 09/25/19 10:16 Dose: 100 mls/hr Lidocaine HCl (Xylocaine-Mpf 1%) Confirm Administered Dose 4 mls @ as directed .ROUTE .ST-MED ONE Stop: 09/24/19 08:11 Lactated Ringer's (Ringers, Lactated) Confirm Administered Dose 1,000 mls @ as directed .ROUTE .STK-MED ONE Stop: 09/24/19 09:03 Iodine (Iodine 2% Mild Tincture) Confirm Administered Dose 30 ml .ROUTE .STK- MED ONE Stop: 09/24/19 07:38 Last Admin: 09/24/19 10:07 Dose: 18 ml Ketorolac Tromethamine (Toradol) 15 mg IVPUSH Q6H PRN PRN Reason: Pain Last Admin: 09/25/19 00:57 Dose: 15 mg Levothyroxine Sodium (Levothyroxine) 37.5 mcg PO ACBREAKFAST ARCHIE Last Admin: 09/25/19 05:38 Dose: 37.5 mcg Lidocaine/Sodium Bicarbonate (Buffered Lidocaine 1% In Ns 8.4%) 0.25 ml IDERM ONETIME PRN PRN Reason: Prior to IV Start Stop: 09/24/19 18:00 Last Admin: 09/24/19 07:35 Dose: 0.25 ml Losartan Potassium (Cozaar) 100 mg PO DAILY [facility] Last Admin: 09/25/19 10:16 Dose: 100 mg Magnesium Hydroxide (Milk Of Magnesia) 30 ml PO BID PRN PRN Reason: Constipation Miscellaneous Information (Remove Patch) 0 ea TRDERM ONETIME ONE Stop: 09/28/19 11:46 Multivitamins (Thera) 1 each PO DAILY [facility] Last Admin: 09/25/19 10:18 Dose: 1 each Naloxone HCl (Narcan) 0.1 mg IVPUSH Q5M PRN PRN Reason: Oversedation Non-Formulary Medication (Amoxicillin) 2,000 mg PO ONETIME PRN PRN Reason: prior to dental procedures Ondansetron HCl (Zofran) 4 mg IVPUSH Q6H PRN PRN Reason: Nausea/Vomiting Last Admin: 09/25/19 10:19 Dose: 4 mg Ondansetron HCl (Zofran) Confirm Administered Dose 4 mg .ROUTE .STK-MED ONE Stop: 09/24/19 08:11 Ondansetron HCl (Zofran) 4 mg IVPUSH ONETIME PRN PRN Reason: Nausea/Vomiting Stop: 09/24/19 14:00 Bimatoprost 1 Drop 0 each EYEBOTH BEDTIME [facility] Last Admin: 09/24/19 20:54 Dose: 1 each Terbinafine 1 Dose 0 each TOP BID [facility] Last Admin: 09/25/19 10:24 Dose: Not Given Timolol 0.5% 10 Ml Bottle Pateint's Own 0 each EYEBOTH DAILY [facility] Potassium Chloride (Klor-Con 10) 10 meq PO DAILY [facility] Last Admin: 09/25/19 10:18 Dose: 10 meq Propofol (Diprivan 20 Ml) Confirm Administered Dose 400 mg .ROUTE .STK-MED ONE Stop: 09/24/19 08:11 Rivaroxaban (Xarelto) 10 mg PO DAILY [facility] Last Admin: 09/25/19 10:16 Dose: 10 mg Ropivacaine (Naropin 0.5%) Confirm Administered Dose 30 ml .ROUTE .STK-MED ONE Stop: 09/24/19 03:31 Scopolamine (Transderm-Scop) 1.5 mg TRDERM ONETIME STA Stop: 09/25/19 11:41 Last Admin: 09/25/19 11:53 Dose: 1.5 mg Senna (Senna) 8.6 mg PO BID PRN PRN Reason: Constipation Sodium Chloride (Saline Flush) 10 ml FLUSH ASDIRECTED PRN PRN Reason: Keep Vein Open Stop: 09/24/19 18:00 Timolol Maleate (Timoptic 0.5% Ophth Soln) 0 ml EYEBOTH DAILY [facility] Last Admin: 09/25/19 15:45 Dose: Not Given Tranexamic Acid (Cyklokapron) Confirm Administered Dose 1,000 mg .ROUTE .STK- MED ONE Stop: 09/24/19 07:37 Last Admin: 09/24/19 10:21 Dose: 1,000 mg Trospium (Sanctura) 20 mg PO BIDAC [facility] Last Admin: 09/25/19 05:37 Dose: 20 mg Vancomycin HCl (Vancomycin) Confirm Administered Dose 1 gm .ROUTE .STK-MED ONE Stop: 09/24/19 07:37 Last Admin: 09/24/19 10:17 Dose: 1 gm
--- NOTE | 2019-09-28 14:56 | OR ---
DATE OF OPERATION: 09/24/2019 SURGEON: Ervin Kebede MD OPERATION PERFORMED: Revision of right total knee arthroplasty, tibial component. PREOPERATIVE DIAGNOSIS: Painful total knee arthroplasty with arthrofibrosis. POSTOPERATIVE DIAGNOSIS: Painful total knee arthroplasty with arthrofibrosis. ANESTHESIA: Local MAC with spinal. ANESTHESIA PROVIDER: Juliana Arzate. ASSISTANTS: Nancy Brown PA-C; and Sonam Arenas LPN. ESTIMATED BLOOD LOSS: 5 mL. COMPLICATIONS: None. CONDITION: Stable. IMPLANTS: 1. Moore size 12 x 50 mm tibial stem. 2. Derek size A tibial cone. 3. Derek size 2 tibial baseplate. 4. Derek size 2, 9 mm TS polyethylene insert. DESCRIPTION OF PROCEDURE: The patient was identified in the preoperative holding area. Proper site was marked and identified by the surgeon. The patient was taken back to the operating theater. After adequate anesthesia, the patient's right lower extremity had a nonsterile tourniquet applied and then was sterilely prepped and draped in the usual sterile fashion. OR-wide time-out was performed. The patient received 2 g IV Ancef. Right lower extremity was then exsanguinated. Tourniquet was insufflated 250 mmHg. The previous incision was utilized and a medial parapatellar arthrotomy was created. The patient's patella, again, was noted to not be resurfaced, but that is because at its lowest point it measured about 11 with a fairly large portion of it measuring 11 or less. At this time, secondary to that, the patella still could not be resurfaced. 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 At this time, the tibial component was identified. Circumferential removal of any synovium or scar tissue was then done around it. The reciprocating saw and a flat flexible osteotome were then utilized to disrupt the cement mantle and the tibial component was removed. At this time, there was noted to be very little bone loss, and the intramedullary tibial cutting guide was then placed and 2 mm was resected off the tibia and was found to be an adequate resection for the next component with a good flat cut. I was able to ream the canal for a size 12 x 50 mm stem. At this time, the T-handle was then utilized to place the 12 reamer down and then the cone reamer was placed over the top and was found to be a size A cone. Trial implants were then placed. The patient was noted to have full extension with a 9 mm TS trial component. Patella was tracking centrally. There were no signs of instability. The patient had full extension and flexion with no signs of liftoff with the trial components. At this time, all cut surfaces were irrigated with pulse lavage irrigation with Ancef and then completely dried. Cement was mixed on the back table. The size 2 tibial component with a 50 mm stem was then constructed on the back table and the size 8 cone was impacted in the proper rotation, which was marked previously. Cement was then placed into the tibia after restrictor was placed, and the size 2 tibial component was cemented into place. The 9 mm TS polyethylene insert was then impacted into place, and the metal PEG was impacted into place and the polyethylene. The patient's knee was brought into full extension. She had continued full range of motion until the cement was allowed to harden. 1 L dilute Betadine solution was irrigated through the knee along with 3 L of pulse lavage irrigation with Ancef. Topical tranexamic acid and vancomycin powder were placed. After this was completed, periarticular injection was completed. A #2 barbed suture was used for closure of the medial parapatellar arthrotomy, 2- 0 Vicryl was used subcutaneously, and Prineo was used for the skin. The patient tolerated the procedure well and was sent to PACU in a stable condition. ROSANA /[id number]
== END 2019-09-25 12:00 | disposition home or self-care (01) | DRG 468 ==
LOC: JD.MS 09-24 07:12
PROVIDERS: ADMIT Orthopaedic Surgery; ATTEND Orthopaedic Surgery
PROC: 0SPV0JZ Removal of Synthetic Substitute from Right Knee Joint, Tibial Surface, Open Approach (ICD-10-PCS; principal; 2019-09-24)
PROC: 0SRV0J9 Replacement of Right Knee Joint, Tibial Surface with Synthetic Substitute, Cemented, Open Approach (ICD-10-PCS; 2019-09-24)
PROC: 0SPC09Z Removal of Liner from Right Knee Joint, Open Approach (ICD-10-PCS; 2019-09-24)
PROC: 0SUV09Z Supplement Right Knee Joint, Tibial Surface with Liner, Open Approach (ICD-10-PCS; 2019-09-24)
DX: T84.84XA Pain due to internal orthopedic prosthetic devices, implants and grafts, initial encounter (principal); E03.9 Hypothyroidism, unspecified; I10 Essential (primary) hypertension; F41.1 Generalized anxiety disorder; F32.9 Major depressive disorder, single episode, unspecified; M81.0 Age-related osteoporosis without current pathological fracture; E53.8 Deficiency of other specified B group vitamins; D50.9 Iron deficiency anemia, unspecified; Z96.611 Presence of right artificial shoulder joint; Z96.612 Presence of left artificial shoulder joint; Z90.49 Acquired absence of other specified parts of digestive tract; Z90.710 Acquired absence of both cervix and uterus; Z79.890 Hormone replacement therapy
CPT/HCPCS: 01402; 36415; 64450; 73560-26-RT; 73560-RT; 80053; 85027; 97110-GP; 97116-GP; 97161-GP; 97165-GO; 97535-GO; A9270-GY; C1713; C1776; J0171; J0690; J0697; J1100; J1885; J2001; J2405; J2704; J2795; J3010; J3370; J3490; J7050; J7120